=== PATIENT | female | born 1990 | race African-American/Black ===

== ENCOUNTER 2017-01-27 12:35 | Emergency (ER) | payer OTHER ==
[~2017-01-27] VITALS: Ht 170.2 cm; Wt 77.1 kg
[~2017-01-27 12:35] MED LIST: DOXYCYCLINE 10100 MG PO; NORCO 7.5-3251 EACH PO
[2017-01-27] MEDS ORDERED: MOBIC15 MG PO (14:39)
[2017-01-27 14:42] VITALS: BP 144/88
== END 2017-01-27 14:43 | disposition home or self-care (01) ==
LOC: ER 12:35
DX: S61.212A Laceration without foreign body of right middle finger without damage to nail, initial encounter (principal); W27.0XXA Contact with workbench tool, initial encounter; Y93.89 Activity, other specified; Y92.89 Other specified places as the place of occurrence of the external cause; Y99.8 Other external cause status

== ENCOUNTER 2017-05-13 20:22 | Emergency (ER) | payer OTHER ==
[~2017-05-13] VITALS: Ht 170.2 cm; Wt 77.1 kg
[~2017-05-13 20:22] MED LIST changes: +MOBIC15 MG PO
[2017-05-13] MEDS ORDERED: LIORESAL 10 MG10 MG PO (23:31)
[2017-05-13] MEDS ORDERED: MOBIC15 MG PO (23:31)
[2017-05-13 23:51] VITALS: BP 124/80
== END 2017-05-13 23:52 | disposition home or self-care (01) ==
LOC: ER 20:22
DX: M25.512 Pain in left shoulder (principal); M54.2 Cervicalgia; R07.81 Pleurodynia; Y04.8XXA Assault by other bodily force, initial encounter; Y93.89 Activity, other specified; Y92.89 Other specified places as the place of occurrence of the external cause; Y99.8 Other external cause status